=== PATIENT | male | born 1960 | race Caucasian/White ===

== ENCOUNTER 2017-12-08 22:21 | Emergency (ER) | payer BC ==
[2017-12-08] MEDS ORDERED: Morphine 4 MG/ML Carpuject ONE (22:57)
[2017-12-08] MEDS ORDERED: Dexamethasone 10 MG/ML VIAL ONE (22:57)
[2017-12-08 23:34] LABS: #Lymphocytes 0.5 thou/uL (1.20-3.40); #Monocytes 0.2 thou/uL (0.11-0.59); #Neutrophils 5.8 thou/uL (1.40-6.50); %Basophils 0.5 % (0.0-1.0); %Lymphocytes 7.8 % (21.0-51.0); %Monocytes 2.8 % (0.0-10.0); %Neutrophils 88.9 % (42.0-75.0); ALT (SGPT) 29 U/L (8-55); AST (SGOT) 19 U/L (5-34); Albumin 4.6 g/dL (3.5-5.0); Alkaline Phosphatase 31 U/L (40-150); Anion Gap 14 mmol/L (10-20); BUN (Urea Nitrogen) 20 mg/dL (8.4-25.7); Bilirubin, Total 0.7 mg/dL (0.2-1.2); Calc. Creatinine Clearance 0 mL/min (70-130); Calcium 9.6 mg/dL (7.8-10.44); Carbon Dioxide 23 mmol/L (22-29); Chloride 102 mmol/L (98-107); Estimated GFR-MDRD 85; Glucose 140 mg/dL (70-105); Hemoglobin 15.9 g/dL (14.0-18.0); Mean Corpuscular HGB CONC 35.9 g/dL (32.0-36.0); Mean Corpuscular Volume 88.1 fL (78.0-98.0); Mean Platelet Volume 8.7 fL (7.4-10.4); Platelet Count 233 thou/uL (130-400); Potassium 4.1 mmol/L (3.5-5.1); Protein, Total 7.6 g/dL (6.0-8.3); RBC Distribution Width 10.9 % (11.5-14.5); Red Blood Cell (RBC) Count 5.04 mill/uL (4.70-6.10); Sodium 135 mmol/L (136-145); White Blood Cell (WBC) Count 6.5 thou/uL (4.8-10.8)
--- NOTE | 2017-12-09 00:08 | MRI ---
MRI LUMBAR SPINE WITHOUT CONTRAST: 12/08/17 HISTORY: Right leg and back pain since Wednesday. No injury or surgery. COMPARISON: None. FINDINGS: The aortic contour is nonaneurysmal. No retroperitoneal adenopathy. No hydroureteronephrosis. Paraspinal musculature is normal. No compression fracture. No marrow infiltrative process. The conus medullaris terminates near the mid L1 vertebral body. Levels are as follows: L1-2: Normal disc. No neural foraminal or spinal canal narrowing. L2-3: Normal disc. No neural foraminal or spinal canal narrowing. L3-4: There is a right subforaminal and lateral recess posterior disc protrusion abutting the exiting nerve root causing moderate right sided neural foraminal narrowing. No spinal canal narrowing. L4-5: Moderate degenerative disc space disease. Mild facet arthropathy. There is a small right subfor aminal and lateral recess posterior disc osteophyte complex causing mild neural foraminal narrowing. There is also a left subforaminal and posterior recess disc protrusion causing moderate neural forami nal narrowing with abutment of the traversing nerve root. L5-S1: Severe degenerative disc space height loss. There is a left paracentral, subforaminal, and lat eral recess posterior disc protrusion causing moderate neural foraminal narrowing with abutment of th e traversing left S1 nerve root. There is also right subforaminal lateral recess posterior disc protr usion abutting the traversing right S1 nerve root causing moderate neural foraminal narrowing. IMPRESSION: Multilevel nerve root abutment due to posterior disc protrusions as described above. No acute fractur e or malalignment or paraspinal edema. POS: [facility]
== END 2017-12-09 00:46 | disposition home or self-care (01) ==
LOC: SCSER 22:21
DX: M54.41 Lumbago with sciatica, right side (principal); M51.86 Other intervertebral disc disorders, lumbar region; I10 Essential (primary) hypertension; E78.5 Hyperlipidemia, unspecified; Z79.899 Other long term (current) drug therapy
CPT/HCPCS: 72148; 80053; 85025; 96374; 96375; J1100; J2270

== ENCOUNTER 2024-01-09 13:35 | Emergency (ER) | payer BC ==
[2024-01-09 14:22] LABS: #Basophils 0.04 10x3/uL (0.0-0.2); %Basophils 0.6 % (0.0-1.0); %Eosinophils 3.7 % (0.0-10.0); %Lymphocytes 15.6 % (21.0-51.0); %Monocytes 9.4 % (0.0-10.0); %Neutrophils 70.4 % (42.0-75.0); Hematocrit 44.6 % (42.0-52.0); Hemoglobin 15.7 g/dL (14.0-18.0); Mean Corpuscular HGB CONC 35.2 g/dL (32.0-36.0); Mean Corpuscular Volume 90.8 fL (78.0-98.0); Mean Platelet Volume 10.2 fL (7.4-10.4); Platelet Count 231 10x3/uL (130-400); RBC Distribution Width 12.8 % (11.5-14.5); Red Blood Cell (RBC) Count 4.91 mill/uL (4.70-6.10)
[2024-01-09 14:40] LABS: ALT (SGPT) 53 U/L (8-55); AST (SGOT) 29 U/L (5-34); Albumin 4.2 g/dL (3.4-4.8); Alkaline Phosphatase 35 U/L (40-110); Anion Gap 13 mmol/L (10-20); BUN (Urea Nitrogen) 22 mg/dL (8.4-25.7); Bilirubin, Total 0.5 mg/dL (0.2-1.2); Calc. Creatinine Clearance 0 mL/min (70-130); Calcium 9.8 mg/dL (7.8-10.44); Carbon Dioxide 25 mmol/L (23-31); Chloride 104 mmol/L (98-107); Estimated GFR 75; Globulin 3.3 g/dL (2.4-3.5); Glucose 118 mg/dL (80-115); Potassium 3.7 mmol/L (3.5-5.1); Protein, Total 7.5 g/dL (5.8-8.1); Sodium 138 mmol/L (136-145)
[2024-01-09 14:44] LABS: Troponin I Less than 0.010 ng/mL (< 0.028)
[2024-01-09] MEDS ORDERED: Ketorolac Tromethamine 30 MG (1 mL) VIAL ONE (14:54)
[2024-01-09 15:44] LABS: Influenza A by NAA Not Detected (NotDetected); Influenza B by NAA Not Detected (NotDetected); SARS-CoV-2 NAA Rapid Test DETECTED (NotDetected)
== END 2024-01-09 16:30 | disposition home or self-care (01) ==
LOC: ERS 13:35
DX: U07.1 COVID-19 (principal); I10 Essential (primary) hypertension
CPT/HCPCS: 71045; 80053; 84484; 85025; 93005; 96374; J1885